=== PATIENT | male | born 1995 | race Caucasian/White ===

== ENCOUNTER 2017-06-11 13:10 | Emergency (ER) | payer OTHER ==
[~2017-06-11] VITALS: Ht 182.9 cm; Wt 86.2 kg
[~2017-06-11 13:10] MED LIST: ACETAMINOPHEN-1 EAC1 PO; AMOXICILLIN875 MG PO; BACTRIM DS TAB1 EACH PO; CORTISPORIN OTI10 M2 OT; ERYTHROMYCIN E3.5 G3 OPHTHALMIC; NOHOMEMEDICATIONS; NORCO 5-325 TA1 EACH PO; PERCOCET 5-3251 EACH PO; VICODIN 5-5001 EACH PO; ZOFRAN ODT4 MG PO
[2017-06-11] MEDS ORDERED: NORCO 5-325 TA1 EACH PO (16:39)
[2017-06-11] MEDS ORDERED: IBUPROFEN 600600 M1 PO (16:39)
[2017-06-11 16:54] VITALS: BP 122/64
== END 2017-06-11 16:55 | disposition home or self-care (01) ==
LOC: M.ERS 13:10
DX: S82.891A Other fracture of right lower leg, initial encounter for closed fracture (principal); F17.210 Nicotine dependence, cigarettes, uncomplicated; F10.99 Alcohol use, unspecified with unspecified alcohol-induced disorder; W18.39XA Other fall on same level, initial encounter; Y93.89 Activity, other specified; Y92.89 Other specified places as the place of occurrence of the external cause; Y99.8 Other external cause status